=== PATIENT | male | born 1980 | race African-American/Black ===

== ENCOUNTER 2018-03-28 14:08 | Emergency (ER) | payer MEDICAID ==
[~2018-03-28] VITALS: Ht 170.2 cm; Wt 86.4 kg
[2018-03-28 15:20] VITALS: BP 155/77
== END 2018-03-28 15:45 | disposition home or self-care (01) ==
LOC: EMS 14:10
DX: S63.613A Unspecified sprain of left middle finger, initial encounter (principal); F17.210 Nicotine dependence, cigarettes, uncomplicated; W19.XXXA Unspecified fall, initial encounter; Y93.39 Activity, other involving climbing, rappelling and jumping off; Y92.89 Other specified places as the place of occurrence of the external cause; Y99.8 Other external cause status
CPT/HCPCS: 99281